=== PATIENT | female | born 1985 | race Caucasian/White ===

== ENCOUNTER → 2019-04-28 | Outpatient (CLI) | payer BC ==
--- NOTE | 2019-04-28 17:20 | KCIC ---
EXAM: Bilateral digital screening mammogram with tomosynthesis. HISTORY: 34-year-old female presents for screening mammography. TECHNIQUE: Full-field digital craniocaudal and mediolateral oblique 2D and 3D tomosynthesis images of both breasts are obtained for evaluation. Computer aided detection with [employer]later[employer] software version 9.3 was applied. COMPARISON: None. This is baseline mammogram. BREAST PARENCHYMAL DENSITY: Level C - Heterogeneously dense. FINDINGS: There is a small circumscribed nodular density within the 3:00 several aspect of the right breast which appears to contain a punctate calcification. There are additional areas of nodularity which are likely benign based on multiplicity and morphology. There is no architectural distortion. There is no suspicious calcification. IMPRESSION: BI-RADS Category 0: Incomplete. Additional imaging needed. RECOMMENDATION: Sonographic imaging of the right breast to confirm benignity of a small circumscribed nodular density within the 3:00 subareolar location is recommended, given the absence of prior studies to confirm stability. If your mammogram demonstrates that you have dense breast tissue, which could hide abnormalities, and if you have other risk factors for breast cancer that have been identified, you might benefit from supplemental screening tests that may be suggested by your ordering physician. Dense breast tissue, in and of itself, is a relatively common condition. This information is not provided to cause undue concern, but rather to raise your awareness and to promote discussion with your physician regarding the presence of other risk factors, in addition to dense breast tissue. A report of your mammography results will be sent to you and your physician. You should contact your physician if you have any questions or concerns regarding this report. Mammography is a sensitive method for finding small breast cancers, but it does not detect them all and is not a substitute for careful clinical examination. A negative mammogram does not negate a clinically suspicious finding and should not result in delay in biopsying a clinically suspicious abnormality. PQRS compliance statement - Patient information was entered into a reminder system with a target due date for the next mammogram. "Our facility is accredited by the [employer] Mammography Program." Electronically signed by: Roseann Barr MD (04/28/2019 5:17 PM) [email or web address]
== END ==
LOC: KCIC MAMMO 15:49
PROVIDERS: ATTEND Internal Medicine
DX: Z12.31 Encounter for screening mammogram for malignant neoplasm of breast (principal); N64.89 Other specified disorders of breast
CPT/HCPCS: 77063; 77067

== ENCOUNTER → 2019-05-02 | Outpatient (CLI) | payer BC ==
--- NOTE | 2019-05-02 13:27 | KCIC ---
EXAM: Right breast sonogram. HISTORY: 34-year-old female presents for evaluation of nodularity within the subareolar right breast demonstrated on a mammogram dated 04/28/2019. TECHNIQUE: Sonographic imaging of the right breast targeted to the region of mammographic nodularity was performed. COMPARISON: 04/28/2019. FINDINGS: There is a small simple cyst measuring 8 mm within the 2:00 subareolar aspect of the right breast 1 cm from the nipple. This corresponds with the mammographic finding of concern. There is no suspicious sonographic finding. IMPRESSION: 1. 8 mm simple cyst within the 2:00 subareolar location of the right breast, corresponding with the mammographic finding of concern. 2. No suspicious sonographic finding. 3. BI-RADS Category 2: Benign finding(s). Annual mammography is recommended. Electronically signed by: Roseann Barr MD (05/02/2019 1:24 PM) [email or web address]
== END | disposition home or self-care (01) ==
LOC: KCIC US 12:42
PROVIDERS: ATTEND Internal Medicine
DX: N60.01 Solitary cyst of right breast (principal)
CPT/HCPCS: 76641

== ENCOUNTER 2021-02-01 09:08 | Emergency (ER) | payer BC ==
[~2021-02-01] VITALS: Ht 162.6 cm; Wt 76.4 kg
--- NOTE | 2021-02-01 09:16 | PHYS DOC ---
General Adult HPI: HPI: Patient is a 36 year old female who presents to the emergency department concerns of feeling a tingling sensation to both hands and her left cheek approximately 20 minutes prior to arrival. Patient reports she was at her grandmother's this past Sunday, during the her father suddenly of a heart attack. Patient reports she was riding her father's eulogy when the symptoms started. Patient reports there were family members around her at the time. Patient denies any arguments or altercations going on at that time. Patient reports while riding her father's eulogy she her hands start to tingle, she became a little lightheaded, family members became concerned and while s urrounding her and asking her if she is okay she became overwhelmed with her grieving feelings and started to take very deep breaths. Patient denies syncopal or near syncopal episodes, currently denies dizziness or visual changes. Patient denies shortness of breath or chest pain, denies cough or congestion, denies recent fever or chills. Denies nausea, vomiting, diarrhea, or abdominal pains. Patient denies aches or pains to her body. Patient reports she has not slept well or eating well for the past several days surrounding the events of her grandmother's near the and her father's sudden during her grandmother's . Patient denies suicidal thoughts or feelings, denies homicidal thoughts or feelings, reports she is very angry at some family members but has no plans to hurt them. Patient reports her last menstrual cycle started today with normal duration of flow. Patient reports a past medical history of asthma, uses an albuterol MDI as needed for asthma attacks. Patient states she is not having a asthma attack today. Patient reports her last asthma attack several weeks ago. Patient denies recent medication changes. Has not taken any [id number] medications or prescription medications recently. Patient denies other physical complaints or physical concerns. Review of Systems: Review of Systems: 14 body systems of review of systems have been reviewed. See HPI for pertinent positives and negative responses, otherwise all other systems are negative, nonpertinent or noncontributory. Constitutional: Negative except as outlined in HPI above. Skin: Negative except as outlined in HPI above. Eyes: Negative except as outlined in HPI above. HENT: Negative except as outlined in HPI above. Respiratory: Negative except as outlined in HPI above. Cardiovascular: Negative except as outlined in HPI above. GI: Negative except as outlined in HPI above. : Negative except as outlined in HPI above. Musculoskeletal: Negative except as outlined in HPI above. Integument: Negative except as outlined in HPI above. Neurologic: Negative except as outlined in HPI above. Endocrine: Negative except as outlined in HPI above. Lymphatic: Negative except as outlined in HPI above. Psychiatric: Negative except as outlined in HPI above. Heart Score: C/O Chest Pain: No Risk Factors: Risk Factors: DM, Current or recent (<one month) smoker, HTN, HLP, family history of CAD, obesity. Risk Scores: Score 0 - 3: 2.5% MACE over next 6 weeks - Discharge Home Score 4 - 6: 20.3% MACE over next 6 weeks - Admit for Clinical Observation Score 7 - 10: 72.7% MACE over next 6 weeks - Early Invasive Strategies Physical Exam: PE: Constitutional: Well developed, well nourished, no acute distress, non-toxic appearance. 36-year-old female presents with a somnolent appearance otherwise in no apparent distress. HENT: Normocephalic, atraumatic. Patient speaking in normal voice tones. Eyes: Conjunctiva normal, no discharge. Neck: Normal range of motion, no stridor. Cardiovascular: No cyanosis appreciated, distal cap refill less than 2 seconds. Regular rate and rhythm. Lungs & Thorax: Patient is in no respiratory distress, no audible adventitious lung sounds appreciated. Lung sounds clear to auscultate all lung greenwood. Mo derate hyperpnea during physical examination. No inspiratory/expiratory wheezing appreciated for auscultation all lung greenwood. Abdomen: Nontender, no abnormalities noted. Skin: Warm, dry, no erythema, no rash. Back: No tenderness, no deformities. Extremities: No tenderness, no cyanosis, no clubbing, ROM intact, no edema. Neurologic: Alert and oriented X 3, normal motor function, normal sensory function, no focal deficits noted. Psychologic: Grieving affect, judgement normal, mood normal. EKG: EKG: EKG performed at 918 by ED nursing staff shows a normal sinus rhythm without other ectopy, heart rate 74 bpm, CO interval 0.170, QTc interval of 427, no acute STEMI, no ACS, no acute ischemia appreciated, EKG interpreted by ED attending physician Dr. Avalos. Radiology/Procedures: Radiology/Procedures: [] Course & Med Decision Making: Course & Med Decision Making Pertinent Labs and Imaging studies reviewed. (See chart for details) 36-year-old female, vital signs reviewed, presents to the emergency department concerning tingling sensation and overwhelming feelings while riding her father's eulogy today. Patient's reports father suddenly of a reported heart attack during her grandmother's this past Sunday. Patient's physical presentation consistent with anxiety related to the grieving process. Patient denies chest pain or shortness of breath, denies chest palpitations, related to patient's presentation and chief complaint ED nursing staff performed immediate triage EKG. EKG unremarkable. Patient's NIHSS stroke scale negativ e. Bilateral hand and left cheek paresthesias most likely related to her onset of anxiety and grieving while riding her father's eulogy today. Patient denies similar symptoms in the past. Will give 10 mg p.o. Valium and reevaluate after period of time. Patient is amenable to ED planning. Upon reevaluation of the patient, patient remains alert and oriented x3, no longer in a somnolent presentation. Patient reports symptoms have resolved. Patient feels as if she could go home now as she has many things to attend to surrounding her father's upcoming . Patient continues to deny suicidal or homicidal ideation. Discussed with patient will prescribe to tablets of Valium for returning feelings of anxiety and overwhelming feelings. Discussed with patient side effects, do not drive or operate heavy machinery or other dangerous activities while taking Valium. Discussed with patient strict follow- up with Dr. Harvey today to let Dr. Harvey know of her recent events surrounding her grandmother's and father sudden to evaluate ongoing anxiety and grieving process. Return to ER precautions and concerns were reviewed. Patient gave verbal understanding of and is amenable to ED discharge planning. Patient's brother at bedside states he will drive patient home. Discussed with the patient all findings and diagnostic testing as well as the need to follow-up with their primary care provider for further evaluation and treatment or return to the ED if any new or worsening symptoms. Strict return precautions were also discussed at length, the patient voiced understanding and agreement with the discharge planning. The patient was nontoxic in appearance, in no apparent distress, and hemodynamically stable at the time of disposition. Suzie Disclaimer: Suzie Disclaimer: This electronic medical record was generated, in whole or in part, using a voice recognition dictation system. NIHSS Stroke Scale NIH Stroke Scale: NIH Stroke Scale Response (Comments) Value Level of Consciousness: 0 Alert/Responsive 0 LOC Questions: 0 Answers both correctly 0 LOC Commands: 0 Performs both tasks 0 Best Gaze: 0 Normal 0 Visual: 0 No visual loss 0 Facial Palsy: 0 Normal, symmetrical 0 Motor - Left Arm 0 No drift 0 Motor - Right Arm 0 No drift 0 Motor - Left Leg 0 No drift 0 Motor: Right Leg 0 No drift 0 Limb Ataxia: 0 Absent 0 Sensory: 0 No loss 0 Best Language: 0 Normal 0 Dysathria: 0 Normal 0 Extinction and Inattention: 0 Normal 0 Total 0 Departure Departure Impression: Primary Impression: Sudden of family member Additional Impressions: Grieving Anxiety reaction Disposition: 01 HOME / SELF CARE / HOMELESS Condition: GOOD Referrals: KATINA HARVEY MD (PCP) Patient Instructions: Anxiety and Panic Attacks, Grief Reaction Additional Instructions: You were seen today in the emergency department and evaluated for a anxiety/panic type reaction related to the sudden of your father while attending your grandmother's this past Sunday. You were given 10 mg Valium to aid with this reaction during your grieving process. As we discussed, do not operate heavy machinery or drive motor vehicles or perform other dangerous activities while taking this medication. I am prescribing you 2 more tablets for return of symptoms. As we discussed I encourage you to call Dr. Harvey today after you get home and let her know of the current events surrounding your life and discussed with her your grieving process as she may assess the need for further medication assistance during this difficult time surrounding you and your family's loss. Please return to the emergency department for worsening symptoms or other concerns. Thank you for visiting our Emergency Department. It was a pleasure taking care of you today in the emergency department and we appreciate you trusting us with your care. If any additional problems come up don't hesitate to return to visit us. Please follow up with your primary care provider so they can plan additional care if needed and know about the problem that you had. If symptoms worsen come back to the Emergency Department. Any concerning symptoms that start such as chest pain, shortness of air, weakness or numbness on one side of the body, running high fevers or any other concerning symptoms return to the ER. Scripts Diazepam (VALIUM) 10 Mg Tablet 10 MG PO ONCE for Anxiety, #2 TAB 0 Refills Take 1 tablet daily as needed for anxiety or panic attack. Prov: TIFFANIE KRAFT APRN 02/01/21 TIFFANIE KRAFT APRN Feb 01, 2021 09:16
[2021-02-01] MEDS: diazePAM 5 MG TABLET PO ONE (09:38)
[2021-02-01 10:28] VITALS: BP 124/66
[2021-02-01] MEDS ORDERED: VALIUM10 MG PO (10:34)
--- NOTE | 2021-02-01 15:04 | EKG ---
[facility] [address] [place] [address] Test Date: 2021-02-01 Test Time: 09:18:53 Pat Name: MATT BRICENO Department: Room: Gender: F [employer]: : 1985 Requested By: TIFFANIE KRAFT Order Number: [id number] Reading MD: Measurements Intervals Morris Rate: 74 P: 31 OR: 170 QRS: 36 QRSD: 72 T: 13 QT: 380 QTc: 427 Interpretive Statements SINUS RHYTHM NORMAL ECG RI6.02 No previous ECG available for comparison
== END 2021-02-01 10:40 | disposition home or self-care (01) ==
LOC: ER 09:08
DX: F43.21 Adjustment disorder with depressed mood (principal); F41.9 Anxiety disorder, unspecified; Z63.4 Disappearance and death of family member
CPT/HCPCS: 93005; 99283